=== PATIENT | female | born 1985 | race Caucasian/White ===

== ENCOUNTER 2020-03-05 00:42 | Outpatient (CLI) | payer OTHER, SELFPAY ==
[2020-03-05 20:23] LABS: SARS-CoV-2 RNA PCR Negative
== END 2020-03-05 00:43 | disposition home or self-care (01) ==
LOC: ANHCOVIDDT 00:42
PROVIDERS: PCP Family Medicine; Visit Provider Obstetrics & Gynecology
DX: Z01.812 Encounter for preprocedural laboratory examination (principal); Z20.828 Contact with and (suspected) exposure to other viral communicable diseases
CPT/HCPCS: 87635; C9803; U0003

== ENCOUNTER 2020-03-07 01:55 | Day surgery (SDC) | payer OTHER, SELFPAY ==
[2020-03-01 13:32] VITALS: BMI 20.3
[2020-03-07] VITALS (9 sets, daily range): BP systolic 98–122; BP diastolic 62–77; PULSE 61–102; RESP 12–20; TEMP 36.7–37.6; O2SAT 96–100
[2020-03-07] MEDS: ACETAMINOPHEN 500 MG TABLET 1000 MG PO (07:00)
[2020-03-07] MEDS: LACTATED RINGERS 1,000 ML 30 ML IV CONT ×2 (07:07→10:31)
[2020-03-07] MEDS: KETOROLAC 15 MG/ML VIAL (*BKC) IV PUSH (07:15)
--- NOTE | 2020-03-07 07:52 | WPDANESEPPF ---
Anes - Initial Pre Proc Eval Procedure: Operation Date: 03/07/20 08:30 Proposed Procedures p Laparoscopic Ovarian Cystectomy - Ramon Eric MD Date/Time: 03/07/20 07:52 Surgeon: Ramon Eric MD Pre Op Diagnosis: endometriosis of ovary Patient Data Age: 34 Gender: F Height: 5 ft 7 in Weight: 58.99 kg Last Vital Signs Temp 99.6 F 03/07/20 07:11 Pulse 102 H 03/07/20 07:11 BP 121/72 03/07/20 07:11 Pulse Ox 98 03/07/20 07:11 Allergies Allergy/AdvReac Type Severity Reaction Status Date / Time diphenhydramine Allergy Unknown Difficulty Verified 03/01/20 12:57 [From Benadryl] Breathing,HIVES Home Medications Medication Instructions Recorded Confirmed Type PNV cmb#95-ferrous fumarate-FA 1 tablet PO DAILY 03/01/20 03/07/20 History [] albuterol sulfate 2 puff INHALATION QID PRN 03/01/20 03/07/20 History ascorbic acid (vitamin C) 500 mg PO DAILY 03/01/20 03/07/20 History cetirizine 10 mg PO DAILY 03/01/20 03/07/20 History cholecalciferol (vitamin D3) 125 mcg PO DAILY 03/01/20 03/07/20 History cranberry 1,000 mg PO BID 03/01/20 03/07/20 History fluticasone propion-salmeterol 1 inh INHALATION PRN PRN 03/01/20 03/07/20 History [Advair Diskus] ibuprofen 600 mg PO PRN PRN 03/01/20 03/07/20 History potassium gluconate 595 mg PO DAILY 03/01/20 03/07/20 History Patient hx anesthesia problems: none Family hx anesthesia problems: none PMFSH Past Medical History Medical History (Updated 03/07/20 @ 07:52 by Steve Meneses MD) Asthma Social History Social History Smoking packs per day: 1 Smoking cigarettes per day: 20.0 Years smoked: 10 Smoking pack-years: 10.00 Smoking status: Former smoker Tobacco type: cigarettes Smoking end date: 07/20/16 Living arrangements: with family Spiritual care concerns: No Anes - Eval Final PreProcedure Day of Procedure 03/07/20 07:52 Patient weight: normal Heart: regular rate and rhythm Lungs: clear to auscultation Airway: Mallampati scale class II Neurological: alert and oriented Last oral intake: >/= 8 hours ASA classification: II Emergent: no Anesthetic plan: proceed Anesthesia type and monitoring: general ETT and standard monitoring Informed Consent: The patient's anesthetic plan and its attendant risks and benefits were discussed with the patient/family/POA. Questions were solicited and answers provided to the satisfaction of the patient/family/POA.
--- NOTE | 2020-03-07 07:58 | WPDHPUPDATE1 ---
History and Physical Update Update Date/Time: 03/07/20 07:58 History and Physical has been reviewed, including an updated exam of the patient. There are NO changes in the patient's condition. Risks, benefits, and alternatives have been discussed and questions answered. Patient agrees to proceed with procedure.
[2020-03-07] MEDS: METHYLENE BLUE 0.5% INJ 10 ML AMPULE 20 ML IRRIGATION (09:55)
--- NOTE | 2020-03-07 10:48 | P.OP_ITS ---
Procedure Note - Detailed Date of procedure: 03/07/20 Pre-op diagnosis: endometriosis of ovary Post-op diagnosis: same (Pelvic adhesions, pelvic endometriosis) Procedure performed: laparoscopic bilateral ovarian cystectomy, adhesiolysis - 45 minutes, fulguration of endometriosis, resection of paratubal cyst Description of procedure: The patient was taken the operating room. She was prepped and draped in the dorsal lithotomy position after induction of general anesthesia. A 5 mm left upper quadrant incision was made in the abdominal skin with a scalpel. A 5 mm trocar was inserted the intra-abdominal cavity under direct visualization of the scope. A 5 mm left lower quadrant incision was made with the scalp on the abdominal skin and a 5 mm trocar was inserted the intra- abdominal cavity under direct visualization of the scope. A 5 mm infraumbilical incision was made with scalpel and a 5 mm trocar was inserted into the intra- abdominal cavity under direct visualization of the scope. the sigmoid colon was mobilized on the left by taking down the suspensory ligaments. There was a collection adhesions at the juncture of the infundibulopelvic ligament the fallopian tube. This was on the left. Careful dissection of this area released the colon further. The: Abdomen moved medially to get to the left ovary. The ureter was identified found to be intact. Extensive adhesiolysis was performed around the left ovary. The left ovarian cystectomy was performed with sharp and blunt dissection. The cyst capsule was peeled out. adhesiolysis required 45 minutes. It was performed with blunt and sharp dissection. The right ovarian cystectomy was performed. It was on removed and the capsule was peeled out. It was irrigated thoroughly. Endometriosis was fulgurated in the left anterior broad ligament/adnexa lateral to the bladder and uterus. The pelvis was irrigated with copious amounts of normal saline. The pneumoperitoneum was reduced. The trocars were removed. The patient was taken recovery room stable condition. Sponge lap and needle counts were correct x2. Anesthesia: GETA Surgeon: Ramon Eric MD Estimated blood loss (mL): 75 Drains: No Packing: No Complications: No immediate complications Condition: stable Disposition: PACU Findings: the left ovary was completely adherent to the left pelvic sidewall. It was scarred down densely. There was a large endometrioma on the left ovary. It was about 5 cm. There was a 3 cm endometrioma right ovary. There was adhesions between the sigmoid colon and rectum to the lateral pelvic sidewall. Fallopian tubes appeared patent And healthy. There is endometriosis on the anterior left broad ligament. There was endometrial implant on the right posterior adnexa /broad ligament near the cervix.
== END 2020-03-07 12:29 | disposition home or self-care (01) ==
PROVIDERS: PCP Family Medicine; Visit Provider Obstetrics & Gynecology
PROC: (CPT 49320; principal; 2020-03-07 08:30)
DX: N80.1 Endometriosis of ovary (principal); R10.2 Pelvic and perineal pain; N97.0 Female infertility associated with anovulation; N83.8 Other noninflammatory disorders of ovary, fallopian tube and broad ligament
CPT/HCPCS: 58662; 88305; A9270; J1100; J1170; J1885; J2250; J2405; J2704; J2710; J3010; J7030; J7120; Q9968